=== PATIENT | male | born 1965 | race Two or more races ===

== ENCOUNTER 2024-07-04 23:28 | Emergency (ER) | payer OTHER, MEDICAID ==
[~2024-07-04] VITALS: Ht 175.3 cm; Wt 77.1 kg
[2024-07-05 00:19] LABS: BASOPHILS % (AUTO) 0.5 % (0.0-2.0); EOSINOPHILS # (AUTO) 0.1 K/uL (0.0-0.7); EOSINOPHILS % (AUTO) 0.9 % (0.0-6.0); HEMATOCRIT 34 % (39-51); HEMOGLOBIN 10.5 g/dL (13.5-17.5); LYMPHOCYTES # (AUTO) 1.8 K/uL (0.8-4.8); LYMPHOCYTES % (AUTO) 20.7 % (20.0-44.0); MEAN CORPUSCULAR HEMOGLOBIN 23 PG (26.0-33.0); MEAN CORPUSCULAR HGB CONC 31 g/dl (31.0-36.0); MEAN CORPUSCULAR VOLUME 73 fL (80-96); MONOCYTES # (AUTO) 0.6 K/uL (0.1-1.30); NEUTROPHILS # (AUTO) 6.1 K/uL (1.8-8.9); NEUTROPHILS % (AUTO) 70.9 % (43.0-81.0); PLATELET COUNT (AUTO) 241 K/uL (150-450); RED BLOOD CELL COUNT(AUTO) 4.58 MIL/uL (4.5-6.0); RED CELL DISTRIBUTION WIDTH 17.9 % (11.5-15.0); WHITE BLOOD COUNT (AUTO) 8.6 K/uL (4.3-11.0)
[2024-07-05 00:26] LABS: CALCIUM, SERUM 9.2 mg/dL (8.5-10.1); CARBON DIOXIDE 26 mmol/L (21-32); CHLORIDE 108 mmol/L (98-107); CREATININE 1.1 mg/dL (0.6-1.3); GLUCOSE 112 mg/dL (74-106); POTASSIUM 3.6 mmol/L (3.5-5.1); SODIUM SERUM 141 mmol/L (136-145); UREA NITROGEN, BLOOD 24 mg/dL (7-18)
[2024-07-05 00:39] LABS: ALANINE AMINOTRANSFERASE 26 U/L (12-78); ALBUMIN 3.4 g/dL (3.4-5.0); ALCOHOL, BLOOD < 3 mg/dL (0-10); ALKALINE PHOSPHATASE 78 U/L (46-116); ASPARTATE AMINOTRANSFERASE 28 U/L (15-37); BILIRUBIN,TOTAL 0.2 mg/dL (0.2-1.0); LIPASE 85 U/L (16-77); NT-PRO BNP 288 pg/mL (0-125); TOTAL PROTEIN, SERUM 7.9 g/dL (6.4-8.2)
[2024-07-05] MEDS ORDERED: ONDANSETRON HCL/PF 4 MG/2 ML VIAL ONE ×4 (00:39→15:29)
[2024-07-05] MEDS: ONDANSETRON HCL/PF - ER 4 MG/2 ML VIAL IV ONE ×2 (00:40→12:00)
[2024-07-05 01:50] LABS: APPEARANCE,URINE CLEAR (CLEAR); BILIRUBIN,URINE NEGATIVE (NEGATIVE); BLOOD, URINE TRACE-INTA Ery/uL (NEGATIVE); COLOR,URINE YELLOW (YELLOW); KETONES,URINE NEGATIVE (NEGATIVE); LEUKOCYTE ESTERASE ,URINE NEGATIVE (NEGATIVE); NITRITE, URINE NEGATIVE (NEGATIVE); PROTEIN,URINE TRACE mg/dl (NEGATIVE); UGLUCOSE NEGATIVE (NEGATIVE); UROBILINOGEN,URINE 0.2 EU/dL (0.2)
[2024-07-05 02:02] LABS: AMPHETAMINE, URINE NEGATIVE (NEGATIVE); BARBITURATE, URINE NEGATIVE (NEGATIVE); BENZODIAZEPINE, URINE NEGATIVE (NEGATIVE); COCCAINE, URINE NEGATIVE (NEGATIVE); OPIATE, URINE NEGATIVE (NEGATIVE); PHENCYCLIDINE SCREEN,URINE NEGATIVE (NEGATIVE)
[2024-07-05 02:05] LABS: CANNABINOID, URINE POSITIVE (NEGATIVE)
[2024-07-05 02:07] LABS: ADD URINE CULTURE NO; BACTERIA,URINE None seen /HPF (None Seen); MUCUS,URINE Few /LPF (None Seen); RBC,URINE 0-2 /HPF (0-2); SQUAMOUS EPITHELIAL CELL,UR None Seen /HPF (None Seen); WBC,URINE NONE SEEN /HPF (0-3)
[2024-07-05] MEDS ORDERED: METOCLOPRAMIDE HCL 10 MG/2 ML VIAL ONE (02:40)
[2024-07-05] MEDS ORDERED: HYDROMORPHONE 1 MG/1 ML DISP.SYRIN ONE ×3 (02:41→11:55)
[2024-07-05] MEDS: HYDROMORPHONE 1 MG/1 ML DISP.SYRIN IV ONE ×3 (02:53→12:01)
[2024-07-05] MEDS: METOCLOPRAMIDE HCL 10 MG/2 ML VIAL IV ONE (02:54)
[2024-07-05] MEDS ORDERED: OMEP20TA20 PO (05:52)
[2024-07-05] MEDS ORDERED: ONDA4TAB5 PO (05:52)
[2024-07-05] MEDS: ONDANSETRON HCL/PF 4 MG/2 ML VIAL IVP ONE (06:05)
[2024-07-05] MEDS ORDERED: CLONIDINE HCL 0.1 MG TABLET ONE (06:36)
[2024-07-05] MEDS ORDERED: HALOPERIDOL LACTATE INJ 5 MG/ML VIAL ONE (06:36)
[2024-07-05] MEDS: HALOPERIDOL LACTATE INJ 5 MG/ML VIAL IM ONE (06:42)
[2024-07-05] MEDS: CLONIDINE HCL 0.1 MG TABLET PO ONE (06:45)
[2024-07-05] MEDS ORDERED: hydrALAZINE HCL IV 20 MG VIAL ONE (09:00)
[2024-07-05] MEDS: hydrALAZINE HCL IV 20 MG VIAL IV ONE (09:09)
[2024-07-05] MEDS: IV LR 1000 ML 1,000 ML BAG IV ONE (14:00)
[2024-07-05] MEDS: ONDANSETRON HCL/PF 4 MG/2 ML VIAL IV ONE (15:39)
[2024-07-05 15:49] VITALS: BP 145/99; O2SAT 98
== END 2024-07-05 16:10 | disposition short-term general hospital (02) ==
LOC: ER 23:31
DX: R10.84 Generalized abdominal pain (principal); R11.2 Nausea with vomiting, unspecified; R00.1 Bradycardia, unspecified; Z88.0 Allergy status to penicillin; Z88.5 Allergy status to narcotic agent; Z88.6 Allergy status to analgesic agent; Z98.84 Bariatric surgery status; Z87.19 Personal history of other diseases of the digestive system; Z20.822 Contact with and (suspected) exposure to COVID-19
CPT/HCPCS: 99285; 93005; 71045; 74176; 36415; 80307; 96372; 96374; 96361; 96375; 96376; 85025; 83690; 81001; 80053; 84484; 83880; 87426; 80320; J1630; J0360; J2765; J2405 ×6; J7120 ×2; J1170 ×3; G0480

== ENCOUNTER 2025-04-02 12:18 | Emergency (ER) | payer MEDICARE, OTHER ==
[~2025-04-02] VITALS: Ht 185.4 cm; Wt 77.6 kg
[~2025-04-02 12:18] MED LIST: OMEP20TA20 PO; ONDA4TAB5 PO
[2025-04-02] MEDS ORDERED: HALOPERIDOL LACTATE INJ 5 MG/ML VIAL ONE (12:41)
[2025-04-02] MEDS ORDERED: FAMOTIDINE/PF INJ 20 MG/2 ML VIAL IV ONE (12:42)
[2025-04-02] MEDS ORDERED: ONDANSETRON HCL/PF 4 MG/2 ML VIAL ONE (12:42)
[2025-04-02 12:57] LABS: BASOPHILS % (AUTO) 0.4 % (0.0-2.0); EOSINOPHILS % (AUTO) 0.6 % (0.0-6.0); HEMATOCRIT 39 % (39-51); HEMOGLOBIN 12.3 g/dL (13.5-17.5); LYMPHOCYTES # (AUTO) 0.9 K/uL (0.8-4.8); LYMPHOCYTES % (AUTO) 13.4 % (20.0-44.0); MEAN CORPUSCULAR HEMOGLOBIN 24 PG (26.0-33.0); MEAN CORPUSCULAR HGB CONC 32 g/dl (31.0-36.0); MEAN CORPUSCULAR VOLUME 76 fL (80-96); MONOCYTES # (AUTO) 0.3 K/uL (0.1-1.30); MONOCYTES % (AUTO) 4.7 % (2.0-12.0); NEUTROPHILS # (AUTO) 5.5 K/uL (1.8-8.9); NEUTROPHILS % (AUTO) 80.9 % (43.0-81.0); PLATELET COUNT (AUTO) 177 K/uL (150-450); RED BLOOD CELL COUNT(AUTO) 5.09 MIL/uL (4.5-6.0); RED CELL DISTRIBUTION WIDTH 18.8 % (11.5-15.0); WHITE BLOOD COUNT (AUTO) 6.7 K/uL (4.3-11.0)
[2025-04-02] MEDS: ONDANSETRON HCL/PF 4 MG/2 ML VIAL IVP ONE (13:00)
[2025-04-02] MEDS: IV NS 0.9% 1,000 ML BAG IV ONE (13:00)
[2025-04-02] MEDS: HALOPERIDOL LACTATE INJ 5 MG/ML VIAL IV ONE (13:00)
[2025-04-02] MEDS: FAMOTIDINE/PF INJ 20 MG/2 ML VIAL IV ONE (13:00)
[2025-04-02 13:04] LABS: CALCIUM, SERUM 9.4 mg/dL (8.5-10.1); CREATININE 1.1 mg/dL (0.6-1.3); POTASSIUM 3.8 mmol/L (3.5-5.1)
[2025-04-02] MEDS ORDERED: oxyCODONE/APAP (5/325 MG) 1 UDTAB TABLET ONE (13:05)
[2025-04-02 13:10] LABS: BILIRUBIN,DIRECT 0.1 mg/dL (0.0-0.2); BILIRUBIN,TOTAL 0.6 mg/dL (0.2-1.0)
[2025-04-02] MEDS: oxyCODONE/APAP (5/325 MG) 1 UDTAB TABLET PO ONE (13:11)
[2025-04-02 13:17] LABS: ALBUMIN 4.1 g/dL (3.4-5.0)
[2025-04-02] MEDS ORDERED: diphenhydrAMINE HCL 50 MG/ML VIAL ONE (13:24)
[2025-04-02] MEDS ORDERED: LORAZEPAM INJ 2 MG/ML VIAL ONE (13:25)
[2025-04-02] MEDS: LORAZEPAM INJ 2 MG/ML VIAL IV ONE (13:31)
[2025-04-02] MEDS: diphenhydrAMINE HCL 50 MG/ML VIAL IV ONE (13:32)
[2025-04-02] MEDS ORDERED: ONDA4TAB5 PO (13:36)
[2025-04-02 15:28] VITALS: BP 139/88; TEMP 98.1; O2SAT 99
== END 2025-04-02 15:28 | disposition home or self-care (01) ==
LOC: ER 12:26
DX: R10.84 Generalized abdominal pain (principal); R11.10 Vomiting, unspecified; G89.29 Other chronic pain; K86.1 Other chronic pancreatitis; Z88.0 Allergy status to penicillin; Z88.5 Allergy status to narcotic agent; Z88.6 Allergy status to analgesic agent; Z98.84 Bariatric surgery status; Z79.899 Other long term (current) drug therapy
CPT/HCPCS: 99285; 74176; 96374; 96375; 96361; 85025; 80048; 83690; 80076; 36415; J2060; J1200; J1630; J1308; J2405; J7030; A4223

== ENCOUNTER 2025-07-28 04:44 | Emergency (ER) | payer MEDICARE, OTHER ==
[~2025-07-28] VITALS: Ht 185.4 cm; Wt 72.6 kg
[2025-07-28 05:09] VITALS: TEMP 98.5
[2025-07-28 05:30] LABS: APPEARANCE,URINE CLEAR (CLEAR); BLOOD, URINE NEGATIVE Ery/uL (NEGATIVE); LEUKOCYTE ESTERASE ,URINE NEGATIVE (NEGATIVE); NITRITE, URINE NEGATIVE (NEGATIVE); UGLUCOSE NEGATIVE (NEGATIVE)
[2025-07-28 05:43] LABS: AMPHETAMINE, URINE NEGATIVE (NEGATIVE); BARBITURATE, URINE NEGATIVE (NEGATIVE); BENZODIAZEPINE, URINE NEGATIVE (NEGATIVE); COCCAINE, URINE NEGATIVE (NEGATIVE)
[2025-07-28 05:44] LABS: ADD URINE CULTURE NO; CANNABINOID, URINE POSITIVE (NEGATIVE); OPIATE, URINE POSITIVE (NEGATIVE); SQUAMOUS EPITHELIAL CELL,UR None Seen /HPF (None Seen)
[2025-07-28 06:38] LABS: ASPARTATE AMINOTRANSFERASE 29 U/L (15-37); CALCIUM, SERUM 9.1 mg/dL (8.5-10.1); CREATININE 1.3 mg/dL (0.6-1.3); SODIUM SERUM 138 mmol/L (136-145); TOTAL PROTEIN, SERUM 8.1 g/dL (6.4-8.2); UREA NITROGEN, BLOOD 17 mg/dL (7-18)
[2025-07-28 07:17] LABS: PLATELET COUNT (AUTO) 163 K/uL (150-450); RED BLOOD CELL COUNT(AUTO) 4.52 MIL/uL (4.5-6.0); RED CELL DISTRIBUTION WIDTH 18.1 % (11.5-15.0); WHITE BLOOD COUNT (AUTO) 4.2 K/uL (4.3-11.0)
[2025-07-28] MEDS ORDERED: DICYCLOMINE HCL INJ 20 MG/2 ML AMPUL IM ONE (08:45)
[2025-07-28] MEDS ORDERED: ONDANSETRON HCL/PF 4 MG/2 ML VIAL ONE (08:46)
[2025-07-28] MEDS: ONDANSETRON HCL/PF 4 MG/2 ML VIAL IV ONE (08:52)
[2025-07-28] MEDS: DICYCLOMINE HCL INJ 20 MG/2 ML AMPUL IM ONE (08:52)
[2025-07-28 12:51] VITALS: BP 132/77; O2SAT 98
== END 2025-07-28 13:36 ==
LOC: ER 04:46
DX: R45.851 Suicidal ideations (principal); G89.29 Other chronic pain; Z79.891 Long term (current) use of opiate analgesic; Z79.899 Other long term (current) drug therapy; Z87.19 Personal history of other diseases of the digestive system; Z88.0 Allergy status to penicillin; Z88.5 Allergy status to narcotic agent; Z88.6 Allergy status to analgesic agent; Z98.84 Bariatric surgery status; Z20.822 Contact with and (suspected) exposure to COVID-19
CPT/HCPCS: 99285; 96374; 87426; 85025; 80048; 80076; 36415; 80143; 80307; 81001; 96372; J2405; J0500